=== PATIENT | male | born 1975 | race Two or more races ===

== ENCOUNTER 2019-01-11 13:10 | Day surgery (SDC) | payer BC ==
[2019-01-11] MEDS: SOD CHLORIDE 0.9% 1,000 ML IV (14:34)
[2019-01-11] MEDS ORDERED: CEFAZOLIN 1 GM INJ (15:05)
[2019-01-11] MEDS ORDERED: LIDOCAINE 100 MG SYRINGE (15:05)
[2019-01-11] MEDS ORDERED: MIDAZOLAM 1 MG/ML 2 ML INJ (15:05)
[2019-01-11] MEDS ORDERED: PROPOFOL 20 ML (15:05)
[2019-01-11] MEDS ORDERED: FENTAnyl 50 MCG/ML VIAL (15:05)
[2019-01-11] MEDS ORDERED: BUPIVACAINE 0.5%/EPI (SDV) 30 ML INJ (15:10)
[2019-01-11] MEDS ORDERED: POVIDONE IODINE 10% 28.4 GM OINT (15:33)
[2019-01-11] MEDS ORDERED: SEVOFLURANE 15 MIN (16:00)
[2019-01-11] MEDS ORDERED: ONDANSETRON 4 MG INJ (16:00)
[2019-01-11] MEDS ORDERED: DEXAMETHASONE 4 MG/ML 5 ML INJ (16:00)
[2019-01-11] MEDS: BUPIVACAINE 0.5%/EPI (SDV) 10 ML INJ (16:07)
[2019-01-11] MEDS: LIDOCAINE 1% (MPF) 30 ML INJ (16:07)
[2019-01-11] MEDS ORDERED: MEPERIDINE 25 MG INJ IV (16:30)
[2019-01-11] MEDS ORDERED: DIPHENHYDRAMINE 50 MG INJ IV (16:30)
[2019-01-11] MEDS ORDERED: HYDROmorphONE 1 MG/5 ML IV SYRINGE IV ×3 (16:30)
[2019-01-11] MEDS ORDERED: ONDANSETRON 4 MG INJ IV ×2 (16:30)
== END 2019-01-11 17:45 | disposition home or self-care (01) ==
LOC: SDS 13:10
DX: L98.9 Disorder of the skin and subcutaneous tissue, unspecified (principal); I10 Essential (primary) hypertension; E11.9 Type 2 diabetes mellitus without complications; E78.5 Hyperlipidemia, unspecified; Z82.49 Family history of ischemic heart disease and other diseases of the circulatory system; Z83.3 Family history of diabetes mellitus
CPT/HCPCS: 21012; 82962; 88304